=== PATIENT | male | born 1950 | race Asian ===

== ENCOUNTER 2018-01-27 06:30 | Day surgery (SDC) | payer MEDICARE, OTHER ==
[~2018-01-27] VITALS: Ht 165.1 cm; Wt 55.9 kg
[~2018-01-27 06:30] MED LIST: ACET-48 PO; ALLO300 PO; AMLO-511 PO; MOME13HF IH; OMEP20 PO; SODIUM CHLORIDE 0.9% 1,000 ML IV ONE; TIOT185 IH
[2018-01-27] MEDS ORDERED: BENZOCAINE 20% 50 MCG/SPRAY 57 GM TP ONE (06:31)
[2018-01-27] MEDS ORDERED: LIDOCAINE HCL 2% 30 ML JELLY TP ONE (06:31)
[2018-01-27] MEDS ORDERED: SODIUM CHLORIDE 0.9% 1,000 ML IV ONE (07:00)
[2018-01-27] MEDS ORDERED: MIDAZOLAM HCL 2 MG/2 ML VIAL ONE (07:56)
[2018-01-27] MEDS ORDERED: FentaNYL CITRATE-PF 100 MCG/2 ML VIAL ONE (07:56)
[2018-01-27] MEDS ORDERED: MethylPREDNISolone SOD SUCC 125 MG/2 ML VIAL IVP ONE (08:15)
[2018-01-27] MEDS ORDERED: MethylPREDNISolone SOD SUCC 125 MG/2 ML VIAL ONE (08:31)
[2018-01-27] MEDS ORDERED: OXYGEN THERAPY IH SCH (20:00)
== END 2018-01-27 10:05 | disposition home or self-care (01) ==
LOC: SURGERY 06:30
PROVIDERS: ATTEND Internal Medicine Critical Care Medicine
DX: J38.4 Edema of larynx (principal); B37.0 Candidal stomatitis; J84.111 Idiopathic interstitial pneumonia, not otherwise specified; I10 Essential (primary) hypertension; B19.20 Unspecified viral hepatitis C without hepatic coma; K21.9 Gastro-esophageal reflux disease without esophagitis; E78.00 Pure hypercholesterolemia, unspecified; J45.998 Other asthma; Z79.891 Long term (current) use of opiate analgesic; Z87.891 Personal history of nicotine dependence; Z86.11 Personal history of tuberculosis; Z72.89 Other problems related to lifestyle; Z79.899 Other long term (current) drug therapy
CPT/HCPCS: 31623; 31624; 71045; 87015; 87070; 87147; 87205; 87206; 87220; 88108; 88312; 94640; J2250; J2930; J3010; J7030